=== PATIENT | male | born 1960 | race Asian ===

== ENCOUNTER 2018-05-16 18:05 | Inpatient (IN) | payer MEDICAID ==
[~2018-05-16] VITALS: Ht 167.6 cm; Wt 66.3 kg
[2018-05-16 20:28] LABS: BASOPHIL % 0.7 % (0-2); PLATELET COUNT 230 x10^3mcL (130-400); RED CELL DISTRIBUTION WIDTH 13.1 % (11.5-14.5)
[2018-05-16 20:43] LABS: CALCIUM 7.7 mg/dL (8.5-10.1); CARBON DIOXIDE 14.8 mmol/L (21-32); POTASSIUM SERUM 4.6 mmol/L (3.5-5.1); TOTAL PROTEIN, SERUM 6.4 g/dL (6.4-8.2); URIC ACID 8.2 mg/dL (3.5-7.2)
[2018-05-16 20:46] LABS: ALBUMIN 2.8 g/dL (3.4-5.0)
[2018-05-16 20:48] LABS: CREATININE SERUM 8.6 mg/dL (0.7-1.3)
[2018-05-16 20:53] LABS: BILIRUBIN TOTAL 0.1 mg/dL (0.20-1.00)
[2018-05-16] MEDS ORDERED: LIPITOR80 MG PO (22:37)
[2018-05-16] MEDS ORDERED: HYDRALAZINE HCL25 MG PO (22:37)
[2018-05-17] VITALS (10 sets, daily range): BP systolic 141–184; BP diastolic 76–93; Ht 167.6 cm; Wt 66.3 kg
[2018-05-17] MEDS ORDERED: NOVOLIN 70/3010 ML SC (01:20)
[2018-05-17 07:07] LABS: BASOPHIL % 0.9 % (0-2); PLATELET COUNT 192 x10^3mcL (130-400); RED CELL DISTRIBUTION WIDTH 13.2 % (11.5-14.5)
[2018-05-17 07:25] LABS: CALCIUM 7.5 mg/dL (8.5-10.1); CARBON DIOXIDE 16.3 mmol/L (21-32); PHOSPHOROUS 7.2 mg/dL (2.5-4.9); POTASSIUM SERUM 4.4 mmol/L (3.5-5.1)
[2018-05-17 07:30] LABS: CREATININE SERUM 8.7 mg/dL (0.7-1.3)
[2018-05-17 11:20] LABS: UA SPECIFIC GRAVITY 1.025 (1.005-1.035); microscopic required? YES; urine erythrocyte TRACE (NEGATIVE)
[2018-05-17 11:26] LABS: AMPHETAMINE QUAL UR NONE DETECTED (See below)
[2018-05-18] VITALS (7 sets, daily range): BP systolic 142–170; BP diastolic 72–83
[2018-05-18 07:17] LABS: BASOPHIL % 0.5 % (0-2); PLATELET COUNT 222 x10^3mcL (130-400); RED CELL DISTRIBUTION WIDTH 13.5 % (11.5-14.5)
[2018-05-18 07:45] LABS: CALCIUM 8.4 mg/dL (8.5-10.1); CARBON DIOXIDE 15.4 mmol/L (21-32); MAGNESIUM 2.3 mg/dL (1.8-2.4); PHOSPHOROUS 7.1 mg/dL (2.5-4.9); POTASSIUM SERUM 5.2 mmol/L (3.5-5.1)
[2018-05-18 07:48] LABS: CREATININE SERUM 8.7 mg/dL (0.7-1.3)
[2018-05-19 06:04] VITALS: BP 149/76
[2018-05-19 07:36] LABS: BASOPHIL % 0.7 % (0-2); PLATELET COUNT 218 x10^3mcL (130-400); RED CELL DISTRIBUTION WIDTH 13.4 % (11.5-14.5)
[2018-05-19 07:51] LABS: CALCIUM 7.8 mg/dL (8.5-10.1); CARBON DIOXIDE 24.2 mmol/L (21-32); MAGNESIUM 1.9 mg/dL (1.8-2.4); PHOSPHOROUS 5.1 mg/dL (2.5-4.9); POTASSIUM SERUM 4.4 mmol/L (3.5-5.1)
[2018-05-19 07:55] LABS: CREATININE SERUM 6.3 mg/dL (0.7-1.3)
[2018-05-19 09:43] VITALS: BP 145/76
[2018-05-19 12:28] VITALS: BP 152/72
[2018-05-19 21:15] VITALS: BP 159/75
[2018-05-20 05:30] VITALS: BP 147/66
[2018-05-20 06:46] LABS: BASOPHIL % 0.7 % (0-2); PLATELET COUNT 194 x10^3mcL (130-400); RED CELL DISTRIBUTION WIDTH 13.1 % (11.5-14.5)
[2018-05-20 07:57] LABS: CALCIUM 7.7 mg/dL (8.5-10.1); CARBON DIOXIDE 23.1 mmol/L (21-32); MAGNESIUM 1.8 mg/dL (1.8-2.4); PHOSPHOROUS 5.8 mg/dL (2.5-4.9); POTASSIUM SERUM 4.7 mmol/L (3.5-5.1)
[2018-05-20 08:04] LABS: CREATININE SERUM 6.9 mg/dL (0.7-1.3)
[2018-05-20 09:53] VITALS: BP 152/66
[2018-05-20 17:17] VITALS: BP 167/79
[2018-05-20 20:57] VITALS: BP 169/77
[2018-05-21 06:09] VITALS: BP 148/69
[2018-05-21 06:44] LABS: CALCIUM 7.8 mg/dL (8.5-10.1); CARBON DIOXIDE 27.8 mmol/L (21-32); MAGNESIUM 1.7 mg/dL (1.8-2.4); POTASSIUM SERUM 4.6 mmol/L (3.5-5.1)
[2018-05-21 06:52] LABS: CREATININE SERUM 4.7 mg/dL (0.7-1.3)
[2018-05-21 07:03] LABS: BASOPHIL % 0.7 % (0-2); PLATELET COUNT 187 x10^3mcL (130-400); RED CELL DISTRIBUTION WIDTH 13.1 % (11.5-14.5)
[2018-05-21 10:16] VITALS: BP 127/55
[2018-05-21 14:43] VITALS: BP 127/55
[2018-05-21 18:22] VITALS: BP 111/67; BP 141/63
[2018-05-21 21:31] VITALS: BP 159/77
[2018-05-22 06:03] VITALS: BP 133/57
[2018-05-22 06:44] LABS: BASOPHIL % 0.8 % (0-2); PLATELET COUNT 181 x10^3mcL (130-400); RED CELL DISTRIBUTION WIDTH 13.1 % (11.5-14.5)
[2018-05-22 07:00] LABS: CALCIUM 7.8 mg/dL (8.5-10.1); CARBON DIOXIDE 25.6 mmol/L (21-32); MAGNESIUM 1.7 mg/dL (1.8-2.4); PHOSPHOROUS 5.5 mg/dL (2.5-4.9); POTASSIUM SERUM 4.1 mmol/L (3.5-5.1)
[2018-05-22 07:01] LABS: CREATININE SERUM 5.4 mg/dL (0.7-1.3)
[2018-05-22 08:37] VITALS: BP 138/64
[2018-05-22 13:47] VITALS: BP 138/64
[2018-05-22 17:05] VITALS: BP 149/69
== END 2018-05-22 18:55 | disposition home or self-care (01) | DRG 470 ==
LOC: ED 18:05 → DU 22:21 → MU 22:21 → DU 23:42 → MU 05-19 12:20
PROVIDERS: Emergency Medicine; Internal Medicine; Surgery; ADMIT General Practice
PROC: 30233N1 Transfusion of Nonautologous Red Blood Cells into Peripheral Vein, Percutaneous Approach (ICD-10-PCS; 2018-05-17)
PROC: B543ZZA Ultrasonography of Right Jugular Veins, Guidance (ICD-10-PCS; 2018-05-18)
PROC: 5A1D70Z Performance of Urinary Filtration, Intermittent, Less than 6 Hours Per Day (ICD-10-PCS; 2018-05-18)
PROC: 05HM33Z Insertion of Infusion Device into Right Internal Jugular Vein, Percutaneous Approach (ICD-10-PCS; principal; 2018-05-18 08:00)
PROC: 5A1D70Z Performance of Urinary Filtration, Intermittent, Less than 6 Hours Per Day (ICD-10-PCS; 2018-05-20)
PROC: 5A1D70Z Performance of Urinary Filtration, Intermittent, Less than 6 Hours Per Day (ICD-10-PCS; 2018-05-22)
DX: I12.0 Hypertensive chronic kidney disease with stage 5 chronic kidney disease or end stage renal disease (principal); N17.0 Acute kidney failure with tubular necrosis; E43 Unspecified severe protein-calorie malnutrition; N18.6 End stage renal disease; E11.22 Type 2 diabetes mellitus with diabetic chronic kidney disease; D68.69 Other thrombophilia; E83.39 Other disorders of phosphorus metabolism; D63.1 Anemia in chronic kidney disease; Z68.23 Body mass index [BMI] 23.0-23.9, adult; Z79.4 Long term (current) use of insulin; Z87.891 Personal history of nicotine dependence
CPT/HCPCS: 82962; 86580; A4301; J0885-EC; J1644; J1815; J2150; J2250; J2704; J3010; J3490; J7030; J7050; P9016; Q0092; Q0163

== ENCOUNTER → 2018-07-23 | Outpatient (CLI) | payer MEDICAID ==
[~2018-07-23] MED LIST: HYDRALAZINE HCL25 MG PO; LIPITOR80 MG PO; NOVOLIN 70/3010 ML SC
== END | disposition home or self-care (01) ==
LOC: RD 09:49
DX: R76.11 Nonspecific reaction to tuberculin skin test without active tuberculosis (principal)